=== PATIENT | female | born 1950 | race Hispanic/Latino ===

== ENCOUNTER 2017-09-06 10:31 | Outpatient (CLI) | payer MEDICARE ==
[2017-09-06 11:23] LABS: Blood Urea Nitrogen 11 mg/dL (7-17)
--- NOTE | 2017-09-07 08:51 | Cat Scan Report ---
CT chest without contrast. History: Lung cancer screening, followup study. Findings: Comparison is made to previous study on September 01, 2016. An anterior mediastinal lymph node measuring 1.2 x 1.9 cm is unchanged. Several subcentimeter mediastinal nodes are unchanged and unremarkable. No pulmonary nodules or masses are identified. Mild emphysematous changes are again noted. Subsegmental atelectasis and/or parenchymal scarring is seen in the right lower lobe. There is elevation right hemidiaphragm. Impression: No suspicious findings or significant interval changes. Stable mediastinal lymph nodes are described.
== END 2017-09-06 10:32 | disposition home or self-care (01) ==
LOC: CT 10:31
PROVIDERS: ATTEND Internal Medicine Critical Care Medicine
DX: Z12.2 Encounter for screening for malignant neoplasm of respiratory organs (principal); J98.6 Disorders of diaphragm; I10 Essential (primary) hypertension; E11.9 Type 2 diabetes mellitus without complications
CPT/HCPCS: 36415; 71250; 82565; 84520